=== PATIENT | male | born 1995 | race Caucasian/White ===

== ENCOUNTER → 2017-09-05 | Day surgery (SDC) | payer OTHER ==
[~2017-09-05] VITALS: Ht 177.8 cm; Wt 102.1 kg
[2017-09-05 08:52] LABS: ABSOLUTE BASOPHIL COUNT 0 /CUMM (0.0-0.2); ABSOLUTE EOSINOPHIL COUNT 0.2 /CUMM (0.0-0.7); ABSOLUTE GRANULOCYTE CT 2.8 /CUMM (1.4-6.5); ABSOLUTE LYMPH COUNT 2.7 /CUMM (1.2-3.4); ABSOLUTE MONOCYTE COUNT 0.4 /CUMM (0.10-0.60); BASOPHIL % 0.8 % (0.0-2.0); EOSINOPHIL % 3.1 % (0-5); GRANULOCYTE % 45.7 % (42.2-75.2); HEMATOCRIT 47.5 % (42-52); MEAN CORPUSCULAR HGB 30.9 PG (27.0-31.0); MEAN CORPUSCULAR HGB CONC 34.4 G/DL (33.0-37.0); MEAN PLATELET VOLUME 7.3 FL (7.4-10.4); PLATELET COUNT 271 /CUMM (130-400); RBC DISTRIBUTION WIDTH 12.5 % (11.5-14.5); RED BLOOD CELL CT 5.28 /CUMM (4.70-6.10); WHITE BLOOD CELL COUNT 6.2 /CUMM (4.8-10.8)
--- NOTE | 2017-09-05 16:32 | RADIOLOGY REPORT ---
EXAMINATION: XR LUMBAR SPINE CLINICAL INFORMATION: Hemilaminectomy single intraoperative image. COMPARISON: Plain film lumbar spine series dated 06/21/2017. TECHNIQUE: Single lateral intraoperative image. FINDINGS/IMPRESSION: The radiopaque marker is present at the level of the facet joints of the L4 and L5 vertebral bodies.
--- NOTE | 2017-09-07 22:15 | Operative Report ---
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 Right L5 Lumbar Distribution Radiculopathy* 2) L5 Right Lower Extremity Lower Lumbar Distribution Resting, Positional And Claudicating Radiculopathy (Radiating Pain, Motor Deficit And Mild To Moderate Secondary Ambulatory Dysfunction) (* = Refer Here As Well As Elsewhere In This Diagnosis List And Document For Detailed Radiculopathy Symptom And Finding Description) 3) L4-L5 Right Lateral Recess And Intraforaminal Displacement Of Moderate- Sized Extruded, Migrated And Partially Sequestered Compressive Lateral Recess And Intraforaminal Lumbar Intervertebral Disc Fragment 4) Right Lower Extremity Distal (Moderate Extensor Hallucis Longus And Mild Anterior Tibialis) Objectively Documented Motor Neurological Deficit 5) L4-L5 Right Lateral Zone (Lateral Recess And Foraminal) Soft Tissue Disk Space Level Lumbar Spinal Stenosis 6) Severe, Activity And Functionally Limiting, Intermittently Incapacitating , Debilitating And Disabling Lumbosacral Region Back Pain 7) L4-L5 Moderate Degeneration Of Lumbar Intervertebral Disc Associated With Disk Space Narrowing And Vertical Foraminal Height Loss Exacerbating Soft Tissue Stenosis 8) 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) Post-Operative Diagnosis: Same as preoperative diagnosis list with the addition of: Intraoperative And Postoperative Diagnoses Relevant To Postoperative Care: 1) L4-L5 Moderate Degenerative Disk Disease And Disk Space Narrowing With Potential Increased Postoperative (Post-Discectomy) Lumbar Microinstability Requiring Acute Postoperative Activity Limitation And Circumferential Four- Quadrant Buttressed Lumbar Region Compression Orthosis Use For Optimized Symptom Control, Stabilization, Partial Disk Space Unloading And Distraction, Fibrous Disk Space Healing, Postoperative Function And Overall Outcome 2) Expected Acute Postoperative Lumbar Region Pain Requiring Initial Recovery Area Observation, Postoperative Intravenous Narcotic Analgesic Pain Medication And Evaluation For Same Day Discharge Versus Admission And Inpatient Nursing Observation Depending On Ability To Wean To Outpatient Prescription Level Of Oral Home Medication Without Excessive Sedation Following Standard And Uncomplicated Lumbar Discectomy Procedure 3) Expected Acute Postoperative Lumbar Region Muscular Spasm Requiring Initial Recovery Area Observation, Possible Postoperative Muscle Relaxant Medication And Discharge Planning Assessment (See Observation And Discharge Protocol And Criteria For #2 Above) 4) L4-L5 Right Acute Lumbar Hemilaminotomy, Posterolateral Osseous Element Resection (Partial Medial Facetectomy And Medial Expanding Foraminotomy) With Decompressive Discectomy Postprocedural Status Estimated Blood Loss: less than 50ml Surgeon/Nuclear Operations Specialist: EVIN WILHELM,NORBERT Cardozo - Primary Admitting Orthopaedic Spine Surgeon Surgical Providers: Norbert Cleary M.D. - Orthopaedic Spine Surgeon (Primary Admitting Surgeon) Wilian Patterson P.A.-C - Mechanical Developer [employer]ver Anesthesia: general endotracheal tube Monitors: Standard general anesthesia and other perioperative monitoring was performed per anesthesia protocols. Refer to anesthesia monitoring records for details. IV Fluids: Standard anesthesia fluid management was performed without requirement for additional or emergent fluid resuscitation. Refer to anesthesia records for details. Implants: Implants Placed: None Graft Placed: None Urine Output: Refer to anesthesia records for details. Drains: None Specimens: Removed lumbar disk fragments were sent to pathology for analysis per hospital protocol. Complications: None Operative/Procedure Note Note: Preoperative Holding Area Assessment/Preparation: The patient was assessed in the preoperative holding area prior to surgery and no clinical changes or contraindications to surgical intervention were documented compared to the preoperative office and clearance evaluations. Specifically, his preoperative mild but reproducible right lower extremity posterior thigh radiating pain and distal motor deficits were unchanged from orthopaedic spine service preoperative office, admission and clearance examinations. As in the office, the patient was otherwise neurovascularly and musculoskeletally intact in both lower extremities at the time of preoperative assessment based on standard immediate preoperative testing. There were no clinically significant multiple, bilateral or sacral root distribution sensory, motor, coordination, ambulatory or other functional changes reported and no sensory, motor or abnormal reflex findings noted on preoperative examination to suggest acute increase in neural element compression that might be associated with increased neurological intraoperative risk or necessitate an alteration of treatment plan based on preoperative assessment. The surgical plan and site were confirmed with the patient and preoperative paperwork was finalized. The region of the intended surgical site was cleansed, prepped and marked per protocol. The primary surgeon, anesthesia care team members, and operating room staff confirmed the patient identity, surgical procedure, and operative site as well as other clinical details with the patient in an initial documented preoperative confirmation (awake time out) prior to the administration of sedation or anesthesia. Prior to receiving any preoperative medications, the patient confirmed his NPO status since midnight. Surgical Procedure: The procedure was performed by Dr. Cleary who was present and served as the primary surgeon for all critical intraoperative and perioperative decisions and interventions. The assistance of a specialty trained surgical physician technical staff assistant was critical for safe completion of all phases of the procedure, particularly for maintenance of clear visualization in the operative field and for protected neural element retraction. Wilian Patterson P.A.-C assisted in this capacity throughout each critical phase of the procedure. Set-Up/Positioning/Exposure - The patient was brought to the operating room in stable condition and underwent uncomplicated induction of general anesthesia, intubation, and placement of all appropriate monitors, lines, tubes and catheters without difficulty. Administration of 2 grams of IV Ancef based on patient body mass was given for surgical prophylaxis and was completed at least 30 and less than 60 minutes prior to making an incision. The patient was positioned prone on the standard operating table outfitted with a rigidly attached Cloward frame in typical fashion for a lower lumbar discectomy taking care to protect and stabilize the spine during transfer, avoid positions of nerve stretch, pad all pressure points , and support the head without any pressure on the eyes using a foam head rest. In this case, in order to accommodate the patient's specific upper body anatomy, a rolled blanket was placed transversely under the chest which provided additional torso elevation and in turn allowed optimized neutral head and neck positioning. The arms were abducted less than 90 degrees at the shoulders, flexed less than 90 degrees at the elbows and supported on well-padded arm- boards with additional foam padding from the axillary regions to the hands. All pressure points were either fully padded or suspended without any contact at all between pads. The primary surgeon, anesthesia care team, and operating room staff again documented the patient identity, surgical procedure, and operative site as well as other clinical details in a final documented confirmation ( final time out) prior to beginning the procedure. Loupe magnification was used throughout the appropriate portions of the procedure. The surgical field was prepped and draped using standard sterile technique with Duraprep, sterile towels, an Ioband incise drape and an edge-adhesive rectangular surgical field drape. Prior to beginning the procedure, the primary surgeon, anesthesia care team, and operating room staff again documented the patient identity, surgical procedure, and operative site in a final confirmation ("final time out") per standard hospital and [facility] protocols. An incision was then mapped based on palpation localization of surface landmarks (bilateral iliac crests and spinous process tips), infiltrated with 0.5% Marcaine local anesthetic and made in the midline extending longitudinally from the superior tip of the presumptive L5 spinous process to the superior tip of the presumptive L4 spinous process overlying the intended L4-L5 operative level. Hemostasis was achieved using Bovie and Bipolar electrocautery beginning with the incision and continuing throughout the procedure with settings appropriate to each progressive level. The lumbosacral fascia was divided over the right side of the palpation localized L4 and superior L5 spinous process tips as well as the bridging interspinous ligament segment using the Bovie electrocautery which was also used to maintain hemostasis throughout the exposure. Care was taken to preserve the interspinous ligament so as to maintain optimal postoperative stability and motion segment ligamentous tension. The dissection was then carried down the right side of the middle and inferior upper spinous process, the interspinous space and the superior margin of the lower spinous process and then extended laterally to expose the corresponding laminae and interlaminar space at that dissected level out to the medial edge of the facet capsule on that side which was preserved. The Magallon retractor was placed with lateral blunt serrated ("toothed") blade and medial interspinous hook of appropriate length to provide optimal retraction and visualization. The intended hemilaminotomy and discectomy level was marked with a curved curette placed under the inferior leading edge of the superior lamina. The marking instrument was confirmed to be at the intended interspace (L4-L5) on cross-table lateral radiograph. Intraoperative findings of multilevel lumbar moderate degenerative disk disease correlated well with the preoperative radiographic studies and no obvious interval change or additional abnormality was noted. The alignment of the spine on this intraoperative localization radiograph was noted to be normal and unchanged from preoperative office studies. Hemilaminotomy/Discectomy/Decompression - Attention was then turned to the laminar resection and decompressive discectomy portions of the procedure. The lateral margin of the right pars interarticularis of L4 was identified so as to ensure that the hemilaminotomy was tapered sufficiently to avoid thinning or destabilization of this region. Right L4 inferior hemilaminotomy was performed by thinning the inferior edge of the right L4 lamina in a tapered fashion using the [employer] drill followed by piecemeal resection of the deep laminar cortex using Kerrison rongeurs after dissecting under the leading edge with a curved curette to free any underlying adhesions. The inferior right hemilaminotomy of L4 was sufficient to adequately and safely access and decompress the right side of the canal at the L4-L5 level in this case and so no additional interlaminar hemilaminotomy (with resection of the superior margin of L5) was required. The L4 hemilaminotomy was carried out laterally to the level of the medial margin of the facet superficially and to the level of the medial wall of the L5 pedicle within the canal taking care not to violate the posterior facet capsule or excessively thin the pars interarticularis. The lateral extension of the patient's large disk herniation into the lateral recess and intraforaminal zone ventral to the medial edge of the facet joint made it necessary to perform a posterolateral osseous element resection so as to optimize lateral canal exposure and access. A partial medial facetectomy was performed using Kerrison rongeurs taking care to resect only the medial aspect of the facet necessary to decompress the lateral recess and medial foraminal exit zone (well below 50% of the facet complex) while preserving the structural integrity of the facet joint and pars interarticularis. This provided optimal exposure of the lateral canal and traversing neural structures as well as adequate access for safe epidural dissection, neural element retraction and discectomy. The cephalad edge of the ligamentum flavum was dissected from its laminar attachment and elevated with a curved curette insuring that there were no epidural adhesions dorsally. The ligamentum was resected using Kerrison rongeurs and this provided excellent exposure of the canal with full visualization and safe access to the elevated and compressed lateral thecal sac, exiting and traversing nerve roots at this level to allow for gentle neural element mobilization and protection followed by careful removal of the large neurocompressive disk herniation fragment. With the dorsolateral dissection and exposure safely completed, attention was then turned to the ventrolateral perineural dissection and safe mobilization of the neural elements for exposure of the compressive disk herniation. On initial visual evaluation, the traversing and exiting nerve roots as well as the lateral thecal sac were seen to be obviously dorsally displaced and somewhat flattened ventrally by passage over the large underlying herniated disc fragment which appeared to have both significantly extruded into the lateral recess and foraminal exit zone (associated with direct exiting nerve root meningeal contact ) and also partially migrated into a moderate-sized subligamentous pocket beneath the posterior longitudinal ligament behind the L5 vertebral body ( associated with indirect traversing neural element compression) consistent with the preoperative clinical presentation and MRI findings. The direct contact of the disk material with the meninges was associated with focal areas of ventral nerve root erythema, inflammation and irritation suggestive of chemical as well as compressive radiculopathy and consistent with the severity, chronicity and poor response to conservative measures of the patient's symptoms. All of these findings confirmed the indications for surgery and also corroborated the preoperative assertion that improvement would have been unlikely with further conservative management and without surgical intervention. The large size of the extruded disk herniation fragment with extension outside of the normal confines of the disk space and even some migration beyond the motion segment behind the vertebral body along with its inflammatory response was associated with moderate epidural fibrosis and therefore necessitated more extensive dissection (and consequently more careful and extensive protection of the neural elements) as well as more operative time than usual for a typical discectomy procedure. Although neurolysis was felt to be significantly increased compared to the average required for first time discectomy procedures, the fibrotic adhesions did not appear to cause separate tethering or compression of the neural elements, and therefore this additional dissection was still deemed to be consistent with a standard new discectomy procedure. No separately coded neurolysis procedural service was required in this case. Gentle palpation and careful dissection laterally with a Fillmore 4 and ventrolaterally with an Haja curette along with the epidural neurolysis described above was sufficient to safely mobilize the neural elements and optimally access the large extruded and partially sequestered free disk fragment in the lateral recess and intraforaminal zone. This large extruded disk herniation was gently removed as a single fragment using a micropituitary rongeur. This including approximately 1/2 of the fragment which was in the canal primarily compressing the exiting L4 nerve root and 1/2 which was contained in the subligamentous pocket and primarily compressing the traversing L5 root and thecal sac. The entire fragment was quite large meaasuring 6 cm x 1 cm x 0.3 cm. Resection of this fragment resulted in excellent decompression of the neural elements and subsequently allowed for much easier and safer mobilization of the neural structures required for final intradiscal discectomy to insure that any remaining loose fragments were resected from within the disk space. Removal of the large extruded fragment allowed further careful perineural dissection and safe neural element mobilization all the way to the ventral midline with significantly less tension on the traversing neural elements thus minimizing risk of injury. The axilla of the traversing root was checked and no fibrotic tethering was found that might cause acute angle "kinking" or other focal compression at the exit of the nerve from the thecal sac. Thus there was no significant dissection required in the axillary zone. With the perineural dissection, neurolysis and resection of extruded fragment complete, the neural elements could be safely retracted so as to allow extension of the traumatic annulotomy followed by final discectomy of any remaining disk herniation fragments and all loose interspace disk material using standard technique with straight and angled pituitary rongeurs. Epidural hemostasis was achieved using Bipolar electrocautery and gentle packing of the epidural space with small volume of Thrombin soaked Gelfoam held with patties which also provided some medial retraction of the neural elements for optimal exposure of the disk space. The traversing nerve root and thecal sac were gently retracted with a Love nerve root retractor to expose the disk space while protecting the neural elements. The subligamentous pocket formed behind the L5 vertebral body by the dissecting portion of the large extruded disk fragment was explored using an Haja curette to ensure that there were no additional sequestered fragments and none were found. A small crutiate extension of the traumatic annulotomy was performed using a # 11 scalpel blade to optimize disk space access. Interspace discectomy was then performed to remove several loose intervertebral disc fragments using straight and angled pituitary rongeurs taking care to carry the discectomy laterally within the disk space ventral to the foramen so as to completely decompress both the intra- and extra-foraminal spaces, in addition to the lateral recess and central canal. The disk material was found to be somewhat fibrous and moderately degenerative (particularly considering the patient's young age) but was generally structurally intact in the peripheral zones. All loose or non- physiologic disk material was removed from all disk space zones while preserving as much palpable structurally intact disk as possible. Several small fragments were removed from the central and paracental regions and no large or compressive loose fragments were found either centrally or laterally. By palpation the large resected herniation fragment and several additionally resected loose intradiscal fragments left a moderate-sized central defect in the disk space, however the remainder of the disk was of fairly normal consistency by palpation and there were no nucleus, annulus or cartilaginous endplate defects palpated in the peripheral zones. These findings were consistent with the moderate degenerative radiologic (radiographic and MRI) findings noted preoperatively. Once the discectomy was completed, a nerve hook was used to gently sweep under the retracted traversing nerve root and thecal sac to ensure that there was clear passage within the ventral epidural space with no residual extravasated or sequestered disk fragments found. A Aaron dental instrument was then gently passed out the upper and lower foramina without evidence of any foraminal narrowing, stenosis or nerve root compression of either the exiting or the traversing roots. Therefore, no osseous foraminotomy, foraminal soft tissue decompression or lateral root neurolysis dissection was required. Moderate irritability, hyperactive neural firing and muscular contraction was noted even with the very gentle manipulation required to achieve initial neurolysis, decompressive intracanal free fragment discectomy and subsequent neural element mobilization. This was consistent with the degree of compression and irritation seen both on preoperative MRI and intraoperative inspection. All hyperactive responses resolved immediately following decompression and no further abnormal activity was noted during the final intradiscal discectomy or throughout the remainder of the procedure. Hemostasis of osseous and epidural bleeding was achieved using Thrombin soaked Gelfoam and paddies gently applied and removed by irrigation with all bleeding controlled. Bleeding from the laminectomy edge was controlled with a small amount of bone wax applied using the back of a Fillmore with any residua removed. Closure/Recovery - The surgical site was thoroughly irrigated and hemostasis was carefully achieved prior to closure. A piece of Gelfoam was cut to match the size of the hemilaminotomy defect and placed over the dorsal surface of the lateral thecal sac and traversing nerve root to minimize epidural fibrotic adhesions to the decompressed neural elements. The surgical site was found to be dry at the end of the procedure and consequently no drain was needed. Initial counts were correct prior to closure. The lumbar fascial layer was reapproximated to the spinous process and trans-spinous portions of the preserved midline interspinous ligament in a [id number] closure using #0 Vicryl interrupted, [id number] suture technique. The deep suprafascial closure was performed with #2-0 Vicryl interrupted, simple suture technique. The superficial subcutaneous layer was closed with #3-0 undyed Vicryl inverted, interrupted, simple sutures. The skin was closed using chidi with the edges everted. A standard, sterile small island dressing was placed with good coverage. All counts were correct prior to removing the drapes. The patient was turned into the supine position on the hospital bed using careful log-roll technique, avoiding torsional stress and stabilizing the lumbar region during transfer. He was then extubated in the operating room without difficulty. Recovery Room Assessment: The patient was transported to the recovery room in stable condition where gross neurological examination showed normal function with no deficits or worsening compared to his pre-operative assessments on initial recovery from anesthesia. In fact, the patient reported subjective improvement in both his right lower extremity resting raditing pain and distal weakness shortly after awakening from anesthesia and his motor function was confirmed by objective testing to be noticeably improved compared to preoperative assessment. The patient will follow the usual postoperative protocol for lower lumbar decompressive discectomy with some adjustments and accommodations made to the standard protocol because of the size of the patient's herniation fragment, multilevel degenerative changes at a young age and desire to return to a high level of function including vigorous work and recreational activities as early as possible. His postoperative care plan will include early mobilization, oral medication pain control and same day home discharge planning with instructions to mobilize frequently but to avoid lumbar motion or prolonged unsupported upright sitting. Primarily because of his concomitant moderate degenerative disk disease he will use a compression brace during the initial phase of healing for both stability and some distraction so as to optimize fibrous intervertebral disk space stabilization and healing. Lower extremity (particularly gentle hip and knee) motion is encouraged to promote longitudinal nerve motion and minimize fibrous neural tethering during the fibrous consolidation and motion segment stabilization healing phase. Outpatient rehabilitation program will be arranged through the office to begin slowly but progressively at approximately 4 weeks after surgery assuming standard and uncomplicated postoperative course and following clearance at his initial postoperative follow-up assessment. If sedentary light duty work is available through his employer then early work return (2-6 weeks after surgery) might be a consideration. If ambulatory light duty work is available then accelerated work return (6-12 weeks after surgery) may be considered. Otherwise, if he is required to resume all of his normal work activities and hours at full duty (including vigorous activities) upon return to work, then it is likely that he will require completion of full rehabilitative surgical recovery program and then a subsequent work conditioning program over at least 3-4 months before he can safely return to that level of function. Discharge Disposition: PACU CC: Evin WILHELM,Norbert Cardozo; Wilian Tavarez
== END ==
LOC: STS 02:13
PROVIDERS: Orthopaedic Surgery Orthopaedic Surgery of the Spine
DX: M51.16 Intervertebral disc disorders with radiculopathy, lumbar region (principal); M51.26 Other intervertebral disc displacement, lumbar region; M48.062 Spinal stenosis, lumbar region with neurogenic claudication; M79.604 Pain in right leg; M62.81 Muscle weakness (generalized)
CPT/HCPCS: 36415; 72020; C9399; J0131; J0690; J2250